=== PATIENT | male | born 1960 | race African-American/Black ===

== ENCOUNTER 2018-03-10 11:24 | Emergency (ER) | payer OTHER ==
[2018-03-10] MEDS: IBUPROFEN 800 MG TABLET. PO (11:49)
== END 2018-03-10 12:37 | disposition home or self-care (01) ==
LOC: ER 11:24
DX: S39.012A Strain of muscle, fascia and tendon of lower back, initial encounter (principal); M54.5 Low back pain; Z79.1 Long term (current) use of non-steroidal anti-inflammatories (NSAID); X58.XXXA Exposure to other specified factors, initial encounter; Y93.89 Activity, other specified; Y92.89 Other specified places as the place of occurrence of the external cause; Y99.8 Other external cause status
CPT/HCPCS: 72100; 99284